=== PATIENT | female | born 1960 | race Caucasian/White ===

== ENCOUNTER → 2016-09-05 | Outpatient (CLI) | payer BC ==
--- NOTE | 2016-09-05 07:40 | US ---
EXAMINATION TYPE: US pelvis complete transvag DATE OF EXAM: 09/05/2016 7:20 AM COMPARISON: not here prior MRI outside image showed nicolás ov cysts CLINICAL HISTORY: N83.202 OVARIAN CYST LT SIDE,N83.201 OVARIAN CYST RT SIDE. Partial hysterectomy pre ssure in pelvis TECHNIQUE: Transvaginal (TV) and Transabdominal (TA) Date of LMP: age 38 partial hysterectomy EXAM MEASUREMENTS: Uterus: surgically removed Endometrial Stripe: surgically removed Right Ovary: not seen Left Ovary: 3.1 x 2.5 x 2.9 cm TECHNOLOGIST IMPRESSION: large left cyst , smaller rt cyst 1. Uterus: surgically removed 2. Endometrium: surgically removed 3. Right Ovary: large cyst 9.7 x 7.9 x 7.5 cm 4. Left Ovary: 4.6 x 2.9 x 2.7 cm cyst 5. Bilateral Adnexa: see above 6. Posterior cul-de-sac: wnl Both cysts appear simply cystic. IMPRESSION: BILATERAL, SIMPLE APPEARING OVARIAN CYST.
== END | disposition home or self-care (01) ==
LOC: RADUSWWP 06:50
PROVIDERS: ATTEND Family Medicine
DX: N83.202 Unspecified ovarian cyst, left side (principal); N83.201 Unspecified ovarian cyst, right side
CPT/HCPCS: 76830; 76856

== ENCOUNTER → 2018-06-01 | Outpatient (CLI) | payer BC ==
[2018-06-01 12:45] LABS: HCT 40.6 % (34.0-46.0); HGB 13.5 gm/dL (11.4-16.0); MCH 28.2 pg (25.0-35.0); MCHC 33.1 g/dL (31.0-37.0); MCV 85.2 fL (80.0-100.0); Mean Platelet Volume 6.6; Platelet Count 292 k/uL (150-450); RBC 4.76 m/uL (3.80-5.40); RDW 13.6 % (11.5-15.5); WBC 7.8 k/uL (3.8-10.6)
[2018-06-01 12:54] LABS: ALT 26 U/L (9-52); AST 20 U/L (14-36); Albumin 3.6 g/dL (3.5-5.0); Alkaline Phosphatase 71 U/L (38-126); Anion Gap 5 mmol/L; Blood Urea Nitrogen 15 mg/dL (7-17); Calcium 9.4 mg/dL (8.4-10.2); Carbon Dioxide 29 mmol/L (22-30); Chloride 106 mmol/L (98-107); Glucose 84 mg/dL (74-99); Partial Thromboplastin Time 23.5 sec (22.0-30.0); Potassium 4.3 mmol/L (3.5-5.1); Prothrombin Time 9.7 sec (9.0-12.0); Sodium 140 mmol/L (137-145); Total Bilirubin 0.3 mg/dL (0.2-1.3); Total Protein 6.2 g/dL (6.3-8.2)
[2018-06-01 13:00] LABS: Appearance,Urine Clear (Clear); Bacteria,Urine Rare /hpf; Bilirubin,Urine Negative (Negative); Blood,Urine Negative (Negative); Color,Urine Yellow; Glucose,Urine (UA) Negative (Negative); Ketones,Urine Negative (Negative); Leukocyte Esterase,Urine Moderate (Negative); Mucus,Urine Occasional /hpf; Nitrite,Urine Negative (Negative); PH, Urine 6.5 (5.0-8.0); Protein,Urine Negative (Negative); RBC,Urine 2 /hpf (0-5); Specific Gravity,Urine 1.017 (1.001-1.035); Squamous Epithelial Cell,Urine 2 /hpf (0-4); Urobilinogen,Urine <2.0 mg/dL (<2.0); WBC,Urine 2 /hpf (0-5)
== END | disposition home or self-care (01) ==
LOC: LABPAT 11:50
PROVIDERS: ATTEND Orthopaedic Surgery Sports Medicine
DX: Z01.812 Encounter for preprocedural laboratory examination (principal); M17.11 Unilateral primary osteoarthritis, right knee
CPT/HCPCS: 36415; 80053; 81001; 85027; 85610; 85730; 87070

== ENCOUNTER 2019-12-29 13:10 | Emergency (ER) | payer BC ==
[2019-12-29 13:15] VITALS: TEMP 98.1
[2019-12-29] MEDS ORDERED: SODIUM CHLORIDE 0.9% 1,000 ML IV ONE (13:34)
[2019-12-29] MEDS ORDERED: ADENOSINE 3 MG/ML 2 ML VIAL IVP STA (13:34)
[2019-12-29 13:45] LABS: Basophils % (A) 1 %; Eosinophils # (A) 0.4 k/uL (0-0.7); Eosinophils % (A) 4 %; HCT 42.5 % (34.0-46.0); HGB 13.2 gm/dL (11.4-16.0); Lymphocytes # (A) 1.9 k/uL (1.0-4.8); Lymphocytes % (A) 20 %; MCH 26.2 pg (25.0-35.0); MCHC 31.2 g/dL (31.0-37.0); MCV 84.1 fL (80.0-100.0); Mean Platelet Volume 7.2; Monocytes # (A) 0.5 k/uL (0-1.0); Monocytes % (A) 5 %; Neutrophils # (A) 6.6 k/uL (1.3-7.7); Neutrophils % (A) 70 %; Platelet Count 240 k/uL (150-450); RBC 5.05 m/uL (3.80-5.40); RDW 14.2 % (11.5-15.5); WBC 9.4 k/uL (3.8-10.6)
[2019-12-29 13:56] VITALS: RESP 18
[2019-12-29 13:59] LABS: INR 0.9 (<1.2); Partial Thromboplastin Time 23.8 sec (22.0-30.0); Prothrombin Time 9.8 sec (9.0-12.0)
--- NOTE | 2019-12-29 14:02 | ED ---
General Adult HPI - General Chief complaint: Arrhythmia/Palpitations Stated complaint: tachycardia Time Seen by Provider: 12/29/19 13:21 Source: patient, RN notes reviewed, old records reviewed Mode of arrival: ambulatory Limitations: no limitations - History of Present Illness Initial comments: 59-year-old with palpitations. History of SVT. Not on any beta blockers or calcium channel mary. She states she has an episode every few years. She has been evaluated by cardiology in the past. Denies associated chest pain or dyspnea. Denies fever. Denies nausea vomiting. No other complaints other than racing heart and palpitations. - Related Data Home Medications Medication Instructions Recorded Confirmed Sertraline HCl [Zoloft] 200 mg PO DAILY 12/29/19 12/29/19 Allergies Allergy/AdvReac Type Severity Reaction Status Date / Time No Known Allergies Allergy Verified 12/29/19 14:35 Review of Systems ROS Statement: Those systems with pertinent positive or pertinent negative responses have been documented in the HPI. ROS Other: All systems not noted in ROS Statement are negative. Past Medical History Past Medical History: GERD/Reflux, Sleep Apnea/CPAP/BIPAP Additional Past Medical History / Comment(s): USES MOUTH GUARD FOR SLEEP APNEA History of Any Multi-Drug Resistant Organisms: None Reported Past Surgical History: Hysterectomy Past Anesthesia/Blood Transfusion Reactions: Motion Sickness Past Psychological History: Anxiety Smoking Status: Never smoker Past Alcohol Use History: Occasional Past Drug Use History: None Reported - Past Family History Mother Family Medical History: No Reported History General Exam Limitations: no limitations General appearance: alert, in no apparent distress Head exam: Present: atraumatic, normocephalic Eye exam: Present: normal appearance, PERRL ENT exam: Present: normal exam Neck exam: Present: normal inspection. Absent: tenderness, meningismus Respiratory exam: Present: normal lung sounds bilaterally. Absent: respiratory distress, wheezes Cardiovascular Exam: Present: regular rate, tachycardia GI/Abdominal exam: Present: soft. Absent: distended, tenderness Extremities exam: Present: normal inspection, normal capillary refill. Absent: pedal edema Neurological exam: Present: alert, oriented X3, CN II-XII intact. Absent: motor sensory deficit Psychiatric exam: Present: normal affect, normal mood Skin exam: Present: warm, dry, intact. Absent: cyanosis, diaphoretic Course Vital Signs 12/29/19 12/29/19 12/29/19 13:10 13:12 13:54 Temperature 98.1 F Pulse Rate 172 H 95 Pulse Rate [ 151 H Diaper Machine Tender ] Respiratory 20 18 Rate Blood Pressure 131/92 115/75 O2 Sat by Pulse 97 97 Oximetry 12/29/19 14:28 Temperature Pulse Rate 92 Pulse Rate [ Diaper Machine Tender ] Respiratory 18 Rate Blood Pressure 119/76 O2 Sat by Pulse 97 Oximetry EKG Findings - EKG Comments: EKG Findings:: EKG obtained at 1319, SVT incomplete right bundle left anterior fascicular block, rate of 160, QRS duration 104, QTC 482. Repeat EKG at 1349 s inus tachycardia, left axis deviation, rate of 105, WI interval 172, QRS duration 90, QTC [address] segment elevation Procedures - Procedures Initial comment: Procedure note: Chemical cardioversion, patient placed on a monitor, defi brillation pads are placed on the patient's chest. Nursing is at bedside. She is administered 6 mg of adenosine. She returns to normal sinus rhythm with initial dose of 6 mg of adenosine. Medical Decision Making - Medical Decision Making 59 -year-old female with palpitations. Found to be in SVT. No associated chest pain or dyspnea. Workup reveals normal CBC, stable hemoglobin, normal electrolytes include a magnesium. Negative troponin. Patient had been feeling palpitations for approximately 3 or 4 hours prior to arrival. She has history of SVT. She is given 6 mg of adenosine in the emergency department and returns to sinus mechanism. She remains asymptomatic while observed. Chest x-ray negative for acute cardiac primary disease. She has a human service coordinator that she is able to follow up with. She will return with any worsening or changing symptoms. - Lab Data Result diagrams: 12/29/19 13:20 12/29/19 13:20 Lab Results 12/29/19 12/29/19 12/29/19 Range/Units 13:20 13:20 13:20 WBC 9.4 (3.8-10.6) k/uL RBC 5.05 (3.80-5.40) m/uL Hgb 13.2 (11.4-16.0) gm/dL Hct 42.5 (34.0-46.0) % MCV 84.1 (80.0-100.0) fL MCH 26.2 (25.0-35.0) pg MCHC 31.2 (31.0-37.0) g/dL RDW 14.2 (11.5-15.5) % Plt Count 240 (150-450) k/uL Neutrophils % 70 % Lymphocytes % 20 % Monocytes % 5 % Eosinophils % 4 % Basophils % 1 % Neutrophils # 6.6 (1.3-7.7) k/uL Lymphocytes # 1.9 (1.0-4.8) k/uL Monocytes # 0.5 (0-1.0) k/uL Eosinophils # 0.4 (0-0.7) k/uL Basophils # 0.0 (0-0.2) k/uL PT 9.8 (9.0-12.0) sec INR 0.9 (<1.2) APTT 23.8 (22.0-30.0) sec Sodium 140 (137-145) mmol/L Potassium 4.0 (3.5-5.1) mmol/L Chloride 108 H (98-107) mmol/L Carbon Dioxide 24 (22-30) mmol/L Anion Gap 8 mmol/L BUN 22 H (7-17) mg/dL Creatinine 0.80 (0.52-1.04) mg/dL Est GFR (CKD-EPI)AfAm >90 (>60 ml/min/1.73 sqM) Est GFR (CKD-EPI)NonAf 82 (>60 ml/min/1.73 sqM) Glucose 128 H (74-99) mg/dL Calcium 9.4 (8.4-10.2) mg/dL Magnesium 2.0 (1.6-2.3) mg/dL Total Bilirubin 0.5 (0.2-1.3) mg/dL AST 26 (14-36) U/L ALT 18 (4-34) U/L Alkaline Phosphatase 101 (38-126) U/L Troponin I (0.000-0.034) ng/mL Total Protein 6.5 (6.3-8.2) g/dL Albumin 4.0 (3.5-5.0) g/dL 12/29/19 Range/Units 13:20 WBC (3.8-10.6) k/uL RBC (3.80-5.40) m/uL Hgb (11.4-16.0) gm/dL Hct (34.0-46.0) % MCV (80.0-100.0) fL MCH (25.0-35.0) pg MCHC (31.0-37.0) g/dL RDW (11.5-15.5) % Plt Count (150-450) k/uL Neutrophils % % Lymphocytes % % Monocytes % % Eosinophils % % Basophils % % Neutrophils # (1.3-7.7) k/uL Lymphocytes # (1.0-4.8) k/uL Monocytes # (0-1.0) k/uL Eosinophils # (0-0.7) k/uL Basophils # (0-0.2) k/uL PT (9.0-12.0) sec INR (<1.2) APTT (22.0-30.0) sec Sodium (137-145) mmol/L Potassium (3.5-5.1) mmol/L Chloride (98-107) mmol/L Carbon Dioxide (22-30) mmol/L Anion Gap mmol/L BUN (7-17) mg/dL Creatinine (0.52-1.04) mg/dL Est GFR (CKD-EPI)AfAm (>60 ml/min/1.73 sqM) Est GFR (CKD-EPI)NonAf (>60 ml/min/1.73 sqM) Glucose (74-99) mg/dL Calcium (8.4-10.2) mg/dL Magnesium (1.6-2.3) mg/dL Total Bilirubin (0.2-1.3) mg/dL AST (14-36) U/L ALT (4-34) U/L Alkaline Phosphatase (38-126) U/L Troponin I 0.012 (0.000-0.034) ng/mL Total Protein (6.3-8.2) g/dL Albumin (3.5-5.0) g/dL Critical Care Time Critical Care Time: Yes Total Critical Care Time: 35 Disposition Clinical Impression: Supraventricular tachycardia Disposition: HOME SELF-CARE Condition: Good Instructions (If sedation given, give patient instructions): Heart Palpitations (ED), Supraventricular Tachycardia (ED) Additional Instructions: Please follow up with your human service coordinator. Is patient prescribed a controlled substance at d/c from ED?: No Referrals: Joyce Gan MD [Primary Care Provider] - 1-2 days Time of Disposition: 14:43
[2019-12-29 14:05] LABS: ALT 18 U/L (4-34); AST 26 U/L (14-36); African American GFR (CKD) >90 (>60 ml/min/1.73 sqM); Alkaline Phosphatase 101 U/L (38-126); Anion Gap 8 mmol/L; Blood Urea Nitrogen 22 mg/dL (7-17); Calcium 9.4 mg/dL (8.4-10.2); Carbon Dioxide 24 mmol/L (22-30); Chloride 108 mmol/L (98-107); Glucose 128 mg/dL (74-99); Non-African American GFR(CKD) 82 (>60 ml/min/1.73 sqM); Sodium 140 mmol/L (137-145); Total Bilirubin 0.5 mg/dL (0.2-1.3); Total Protein 6.5 g/dL (6.3-8.2)
--- NOTE | 2019-12-29 14:13 | XR ---
EXAMINATION TYPE: XR chest 1V portable DATE OF EXAM: 12/29/2019 Comparison: None Clinical History: . 59-year-old female dysrhythmia Findings: Heart mildly enlarged. Rightward patient rotation alters normal cardiac mediastinal contours. Overlyi ng right-sided lead. No consolidation or pleural effusion. Hazy densities relating to large patient b zachariah habitus. Impression: Mild cardiomegaly, rotated exam, and hazy densities from large body habitus. No definite acute proces s.
[2019-12-29 14:57] VITALS: BP 114/74; PULSE 90
== END 2019-12-29 14:47 | disposition home or self-care (01) ==
LOC: EC 13:10
DX: I47.1 Supraventricular tachycardia (principal); G47.30 Sleep apnea, unspecified; F41.9 Anxiety disorder, unspecified; Z79.899 Other long term (current) drug therapy; Z99.89 Dependence on other enabling machines and devices
CPT/HCPCS: 99291; 96374; 36415; 93005; 80053; 83735; 84484; 85025; 85610; 85730; 71045; J0153

== ENCOUNTER → 2024-01-23 | Outpatient (CLI) | payer BC ==
--- NOTE | 2024-01-25 12:31 | US ---
EXAMINATION TYPE: US thyroid st tissue head/neck DATE OF EXAM: 01/23/2024 COMPARISON: NONE CLINICAL INDICATION: Female, 63 years old with history of Z12.39 Screening mammogram; R22.1 Left mass ; Pt states lump in left submandibular region. Pt states size of lump varies Hypoechoic area seen with fatty hilum measuring 2.1 x 1.4 x 0.9cm. There is vascularity seen inside. IMPRESSION: Lymph node identified at the site of clinical concern. This may be reactive in nature however short-t erm follow-up and clinical correlation is advised.
--- NOTE | 2024-01-27 16:18 | MM ---
Reason for Exam: Screening (asymptomatic). Last mammogram was performed 1 year(s) and 8 month(s) ago. Patient History: Menarche at age 15. First Full-Term at age 34. Late child-bearing (after 32). Left ovary removed at age 59. Right ovary removed at age 59. Hysterectomy at age 40. Risk Values: Leatha 5 year model risk: 2.0%. NCI Lifetime model risk: 9.7%. Prior Study Comparison: 07/16/2018 Bilateral Screening Mammogram, [facility]. 01/29/2021 Bilateral Screening Mammogram, [facility]. 05/24/2022 Bilateral Screening Mammogram, [facility]. Tissue Density: There are scattered areas of fibroglandular density. Findings: Analyzed By CAD. The pattern is symmetrical. Focal asymmetry upper outer right breast. Stable in appearance. Benign spherical calcification is right breast. No suspicious groups of microcalcifications, spiculated or lobular masses, architectural distortion or other secondary signs of malignancy are mammographically apparent. Overall Assessment: Benign, BI-RAD 2 Management: Screening Mammogram of both breasts in 1 year. A negative mammogram report should not preclude additional follow up of suspicious palpable abnormalities. Patient should continue monthly self breast exam. A clinical breast exam by your physician is recommended on an annual basis and results should be correlated with mammographic findings. Note on Leatha scores and lifetime risk: 1. A Leatha score greater than 3% is considered moderate risk. If this is the case, consider specialist referral to assess eligibility for a risk reducing agent. 2. If overall lifetime risk for the development of breast cancer is 20% or higher, the patient may qualify for future screening with alternating mammogram and breast MRI. Electronically signed and approved by: Fredo Ty D.O. Radiologis
== END | disposition home or self-care (01) ==
LOC: RADMAMWWP 11:53
PROVIDERS: ATTEND Family Medicine
DX: Z12.39 Encounter for other screening for malignant neoplasm of breast (principal); R22.1 Localized swelling, mass and lump, neck
CPT/HCPCS: 76536; 77063; 77067